=== PATIENT | female | born 1965 | race Two or more races ===

== ENCOUNTER 2018-10-06 13:51 | Outpatient (CLI) | payer MEDICAID ==
[~2018-10-06] VITALS: Ht 170.2 cm; Wt 67.1 kg
[2018-10-06 14:15] VITALS: BP 92/58
--- NOTE | 2018-10-07 02:45 | Consultation ---
DATE OF CONSULTATION: 10/06/2018 CHIEF COMPLAINT: Abdominal pain. HISTORY OF THE PRESENT ILLNESS: The patient is a very pleasant 53-year-old female with multiple medical problems came for evaluation of abdominal pain. According to her, abdominal pain is sometimes three times a week, sometimes for 2 to 3 weeks, causing severe attack, associated with vomiting. The patient had been seen in the emergency room at least 5 times in the last 2 months, has had endoscopies, colonoscopies, abdominal ultrasounds, CT scans, multiple laboratory workup and nothing has turned out for cause of abdominal pain, so basically she is here for a second opinion. PAST MEDICAL HISTORY: 1. History of UTI. 2. Severe migraine headaches in the past. 3. Chronic constipation. PAST SURGICAL HISTORY: 1. . 2. Appendectomy. MEDICATIONS: Please see medication reconciliation list. FAMILY HISTORY: No family history of gastrointestinal malignancies. SOCIAL HISTORY: The patient drinks occasionally. She still smokes maybe 7 cigarettes per day. Denies any drug abuse. ALLERGIES: No known drug allergies. PHYSICAL EXAMINATION: VITAL SIGNS: Temperature 97.8, blood pressure 92/58, pulse 68, respirations 20. HEENT: Normocephalic and atraumatic. No scleral icterus. NECK: Supple. No evidence of obvious lymphadenopathy. CARDIOVASCULAR: Regular rhythm. Plus S1 and S2. No obvious murmur. LUNGS: Clear to auscultation bilaterally. ABDOMEN: Positive bowel sounds. Soft, nontender. No rebound. No guarding. No peritoneal sign. ASSESSMENT AND PLAN: 1. Chronic constipation. We will give a trial of Linzess 145 mcg. The patient was given a sample for Linzess to use. 2. Her abdominal symptoms are nonspecific, possibly abdominal migraine. The patient has prior history of migraine, attack, so that might be one diagnosis that the patient gets abdominal migraines with attacks that cause severe pain, vomiting, and goes away and she has no symptoms in between. Other possibility would be cyclic vomiting syndrome although this is not completely cyclic in her case. She maybe one week she gets it three times and then goes away for 2 weeks, but the fact that she is symptoms free in between and may suggest cyclic vomiting syndrome, other possibility is gallbladder dysfunction. The patient does not have gallstones, but possibly given this severe abdominal pain wakes her up in the middle of night with vomiting with retained food material, might be from gallbladder dysfunction. Our plan is to give a trial of Imitrex nasal spray 20 mg; however, to use it while she feels that the pain is coming or when the pain started to see if that will help with subsiding the pain. If that does not work, we are going to have her come back and we will try amitriptyline and we will start low-dose maybe 20 and increase it to 50 as tolerated and see if that will prevent her from these attacks. If that does not work, we will consider doing a HIDA scan with CPK to evaluate for a gallbladder dysmotility. Meanwhile, continue on PPI, trial of Linzess and return to clinic p.r.n. I want to thank Dr. Church for this kind referral. Constantin Leung M.D. DR: Noble JOB#: [id number] CC: Seven Church M.D.
[2018-10-07] MEDS ORDERED: CARAFATE1 G1 ORAL (12:21)
[2018-10-07] MEDS ORDERED: ZANTAC150 MG ORAL (12:21)
[2018-10-07] MEDS ORDERED: IBUPROFEN600 MG ORAL (12:21)
[2018-10-07] MEDS ORDERED: ACETAMINOPHEN-1 EAC1 ORAL (12:21)
[2018-10-07] MEDS ORDERED: METOPROLOL SUCC50 MG ORAL (12:21)
[2018-10-07] MEDS ORDERED: DEXILANT60 MG ORAL (12:21)
== END 2018-10-06 16:00 | disposition home or self-care (01) ==
LOC: PAN 13:51
DX: K59.09 Other constipation (principal); R11.10 Vomiting, unspecified; Z90.89 Acquired absence of other organs; F17.210 Nicotine dependence, cigarettes, uncomplicated
CPT/HCPCS: 99202

== ENCOUNTER 2018-11-03 12:50 | Outpatient (CLI) | payer MEDICAID ==
[~2018-11-03 12:50] MED LIST: ACETAMINOPHEN-1 EAC1 ORAL; CARAFATE1 G1 ORAL; DEXILANT60 MG ORAL; IBUPROFEN600 MG ORAL; METOPROLOL SUCC50 MG ORAL; ZANTAC150 MG ORAL
[2018-11-03 13:13] VITALS: BP 91/63
--- NOTE | 2018-11-03 14:22 | General Progress Note ---
Assessment/Plan Problem List: (1) Abdominal migraine ICD Codes: G43.D0 - Abdominal migraine, not intractable SNOMED: 43534146 (2) Constipation ICD Codes: K59.00 - Constipation, unspecified SNOMED: 92576857 Diagnoses Results of Pharmacotherapy: refill imitrex amitiza elavil 20 mg RTC 2 months Subjective ROS Limited/Unobtainable: Yes Allergies: Coded Allergies: No Known Allergies (Unverified , 10/06/18) Objective General Appearance: alert EENT: normal ENT inspection Neck: supple Cardiovascular: normal rate Respiratory/Chest: lungs clear Abdomen: normal bowel sounds, non tender, soft Extremities: non-tender Constantin Leung MD Nov 03, 2018 14:22
== END 2018-11-03 16:18 | disposition home or self-care (01) ==
LOC: PAN 12:50
DX: G43.D0 Abdominal migraine, not intractable (principal); K59.00 Constipation, unspecified
CPT/HCPCS: 99202

== ENCOUNTER 2019-01-05 12:58 | Outpatient (CLI) | payer MEDICAID ==
--- NOTE | 2019-01-05 13:23 | General Progress Note ---
Assessment/Plan Problem List: (1) Constipation ICD Codes: K59.00 - Constipation, unspecified SNOMED: 24861104 (2) Abdominal migraine ICD Codes: G43.D0 - Abdominal migraine, not intractable SNOMED: 35327091 Assessment/Plan: refill dexilant and Elavil RTC 4 months Subjective ROS Limited/Unobtainable: Yes Allergies: Coded Allergies: No Known Allergies (Unverified , 10/06/18) Objective General Appearance: alert EENT: normal ENT inspection Neck: supple Cardiovascular: normal rate Respiratory/Chest: lungs clear Abdomen: normal bowel sounds, non tender, soft Extremities: non-tender Constantin Leung MD Jan 05, 2019 13:23
[2019-01-05 15:39] VITALS: BP 107/75
[2019-01-05] MEDS ORDERED: AMITRIPTYLINE25 MG ORAL (15:39)
== END 2019-01-05 14:58 | disposition home or self-care (01) ==
LOC: PAN 12:58
DX: K59.00 Constipation, unspecified (principal); G43.D0 Abdominal migraine, not intractable
CPT/HCPCS: 99212